=== PATIENT | male | born 1955 | race Caucasian/White ===

== ENCOUNTER 2023-10-27 09:53 | Inpatient (IN) ==
[~2023-10-27 09:53] MED LIST: Metoclopramide 5 MG/ML VIAL (10 mg) IV PRN; NS 0.45% 1000 ml BAG 1,000 ML IV SCH; Naloxone 0.4 mg VIAL 0.4 mg/ml 1 ml VIAL IV PRN; Ondansetron 4 mg VIAL 2 MG/ML 2 ml VIAL IV PRN; fentaNYL 100 mcg/2 ml 50 MCG/ML VIAL IV PRN
[2023-10-27] MEDS ORDERED: Lidocaine 2% PF 5 ML VIAL ONE (10:19)
[2023-10-27] MEDS ORDERED: fentaNYL 100 mcg/2 ml 50 MCG/ML VIAL ONE ×2 (10:19→11:28)
[2023-10-27] MEDS ORDERED: Midazolam 2 mg/2 ml VIAL 1 mg/ml 2 ml VIAL (2 mg) ONE ×2 (10:19→11:29)
[2023-10-27] MEDS ORDERED: Propofol 10 MG/ML 20 ML BTL ONE ×2 (10:19→13:02)
[2023-10-27] MEDS ORDERED: ceFAZolin 2 GM in NS PREMIX 2 GM/100 ML BAG IVPB ONE (10:37)
[2023-10-27] MEDS ORDERED: Tranexamic Acid 1 GM/100ML BAG 2,000 MG/200 ML BAG IV ONE (10:37)
[2023-10-27 10:48] LABS: Rapid COVID-19 Molecular Undetected (Undetected)
[2023-10-27] MEDS: Lactated Ringers 1000 ml BAG 1,000 ML IV SCH ×2 (10:55→18:27)
[2023-10-27] MEDS ORDERED: ROPIVACAINE 5 MG/ML 30 ML BTL (0.5%) ONE ×2 (11:29→14:09)
[2023-10-27] MEDS ORDERED: Dexamethasone IV 4 MG/ML VIAL 1 ml VIAL ONE ×2 (11:29→14:04)
[2023-10-27] MEDS ORDERED: Rocuronium 50 mg VIAL 10 mg/ml 5 ml VIAL (50 mg) ONE (12:54)
[2023-10-27] MEDS ORDERED: Sevoflurane BOTTLE ONE (13:02)
[2023-10-27] MEDS ORDERED: ceFAZolin VIAL VIAL ONE (13:42)
[2023-10-27] MEDS ORDERED: HYDROmorphone 0.5 MG/0.5 ML SYRINGE ONE ×3 (13:48→14:28)
[2023-10-27] MEDS ORDERED: Ondansetron 4 mg VIAL 2 MG/ML 2 ml VIAL ONE (14:04)
[2023-10-27] MEDS ORDERED: Succinylcholine 200 mg VIAL 20 mg/ml 10 ml VIAL (200 mg) ONE (15:55)
[2023-10-27] MEDS ORDERED: Lactulose 30 ml UDC PO PRN (16:45)
[2023-10-27] MEDS ORDERED: Calcium Carb (TUMS) 500 mg CHEW TAB PO PRN (16:45)
[2023-10-27] MEDS ORDERED: Magnesium Hydroxide LIQ 30 ML UDC PO PRN (16:45)
[2023-10-27] MEDS ORDERED: Ondansetron 4 mg VIAL 2 MG/ML 2 ml VIAL IV PRN (16:45)
[2023-10-27] MEDS ORDERED: Morphine 2 MG/ML SYRINGE IV PRN (16:45)
[2023-10-27] MEDS ORDERED: Ondansetron ODT 4 mg TAB 4 MG TAB PO PRN (16:45)
[2023-10-27] MEDS ORDERED: Albuterol/Ipratropium NEB.SOL (2.5/0.5 MG) 3 ML NEB.SOLN INH PRN (17:41)
[2023-10-27] MEDS: Acetaminophen IV 1 GM/100ML 1,000 MG/100 ML BAG IV ONE (17:43)
[2023-10-27] MEDS: Buffered Lidocaine 1% SYRIN 1 ml INTRADERM ONE (17:45)
[2023-10-27] MEDS: Scopolamine 1 mg/72hr PATCH TRANSDERM ONE (17:45)
[2023-10-27] MEDS: Albuterol/Ipratropium NEB.SOL (2.5/0.5 MG) 3 ML NEB.SOLN INH ONE (19:48)
[2023-10-27] MEDS: ceFAZolin 2 GM in NS PREMIX 2 GM/100 ML BAG IVPB SCH (23:36)
[2023-10-27] MEDS: Magnesium Hydroxide LIQ 30 ML UDC PO SCH (23:40)
[2023-10-28 05:40] LABS: Hematocrit 37.8 % (38-53); Hemoglobin 12.5 g/dL (13.2-16.3); Mean Platelet Volume 8.2 fL (7.5-11.2); Platelet Count 219 10^3/uL (150-450)
[2023-10-28 06:17] LABS: Calcium 8.7 mg/dL (8.6-10.3); Creatinine, Serum 0.85 mg/dL (0.67-1.17); Potassium 4.8 mmol/L (3.5-5.0); eGFR CKD-EPI 95.8 (>60)
[2023-10-28] MEDS: Vitamin THERAPEUTIC TAB PO SCH (09:13)
[2023-10-28 10:18] VITALS: BP 117/75
== END 2023-10-28 14:10 | disposition home or self-care (01) | DRG 302 ==
LOC: AA → INTOOBSV 09:53 → AA 09:53 → SSU 18:03
PROVIDERS: ADMIT Orthopaedic Surgery Adult Reconstructive Orthopaedic Surgery; ATTEND Orthopaedic Surgery Adult Reconstructive Orthopaedic Surgery